=== PATIENT | male | born 1980 | race Caucasian/White ===

== ENCOUNTER 2018-05-14 14:51 | Outpatient (CLI) | payer OTHER ==
[2018-05-14 15:49] LABS: BASOPHILS # (AUTO) 0.1 X10'3 (0-0.2); EOSINOPHILS # (AUTO) 0.1 X10'3 (0-0.9); EOSINOPHILS % (AUTO) 1.3 % (0-6); HEMATOCRIT 46.5 % (42.0-52.0); HEMOGLOBIN 15.7 g/dl (14.0-17.9); LYMPHOCYTES % (AUTO) 25.7 % (21-51); MEAN CORPUSCULAR HEMOGLOBIN 27.8 PG (27.0-31.0); MEAN CORPUSCULAR HGB CONC 33.8 g/dL (33.0-36.5); MEAN CORPUSCULAR VOLUME 82.2 FL (78-98); MEAN PLATELET VOLUME 7.6 FL (7.4-10.4); MONOCYTES # (AUTO) 0.7 X10'3 (0-0.9); MONOCYTES % (AUTO) 8.9 % (2-12); NEUTROPHILS % (AUTO) 63.1 % (42-75); PLATELET COUNT 310 X10'3 (140-440); RED BLOOD COUNT 5.65 X10'6 (4.70-6.10); RED CELL DISTRIBUTION WIDTH 13.5 % (11.5-14.5); WHITE BLOOD COUNT 7.9 X10'3 (4.5-11.0)
[2018-05-14 16:03] LABS: ALANINE AMINOTRANSFERASE 45 U/L (12-78); ALBUMIN 4.1 G/DL (3.4-5.0); ALBUMIN/GLOBULIN RATIO 1.2 (1.1-1.5); ALKALINE PHOSPHATASE 77 IU/L (46-116); ANION GAP 11 (8-16); ASPARTATE AMINO TRANSFERASE 23 U/L (10-37); BILIRUBIN,DIRECT 0.1 MG/DL (0-0.3); BILIRUBIN,TOTAL 0.3 MG/DL (0.1-1.0); BLOOD UREA NITROGEN 19 MG/DL (7-18); BUN/CREATININE RATIO 20.4 (5.4-32.0); CALCIUM 9.2 MG/DL (8.5-10.1); CHLORIDE 103 MMOL/L (99-107); CREATININE 0.93 MG/DL (0.60-1.10); GLUCOSE 89 MG/DL (70-104); POTASSIUM 3.8 MMOL/L (3.5-5.1); SODIUM 139 MMOL/L (135-145); TOTAL PROTEIN 7.6 G/DL (6.4-8.2); eGFR > 90 ML/MIN
== END 2018-05-14 23:59 | disposition home or self-care (01) ==
LOC: LAB 14:51
PROVIDERS: ATTEND Family Medicine
DX: R76.11 Nonspecific reaction to tuberculin skin test without active tuberculosis (principal)
CPT/HCPCS: 36415; 80053; 82248; 85025

== ENCOUNTER 2019-12-06 15:47 | Emergency (ER) | payer BC, OTHER ==
[~2019-12-06] VITALS: Ht 195.6 cm; Wt 136.4 kg
[2019-12-06 15:58] VITALS: BP 142/89
== END 2019-12-06 18:02 | disposition home or self-care (01) ==
LOC: ER 15:48
DX: M54.2 Cervicalgia (principal); Z79.899 Other long term (current) drug therapy
CPT/HCPCS: 70490; 99284

== ENCOUNTER 2021-01-20 03:37 | Emergency (ER) | payer BC ==
[~2021-01-20] VITALS: Ht 195.6 cm; Wt 136.4 kg
[2021-01-20 04:15] LABS: BASOPHILS # (AUTO) 0.1 X10'3 (0-0.2); BASOPHILS % (AUTO) 0.9 % (0-1); EOSINOPHILS # (AUTO) 0.1 X10'3 (0-0.9); EOSINOPHILS % (AUTO) 0.9 % (0-6); HEMATOCRIT 47.7 % (42.0-52.0); HEMOGLOBIN 16.4 g/dl (14.0-17.9); LYMPHOCYTES # (AUTO) 2.7 X10'3 (1.1-4.8); LYMPHOCYTES % (AUTO) 26.6 % (21-51); MEAN CORPUSCULAR HEMOGLOBIN 28.1 PG (27.0-31.0); MEAN CORPUSCULAR HGB CONC 34.4 g/dL (33.0-36.5); MEAN CORPUSCULAR VOLUME 81.9 FL (78-98); MEAN PLATELET VOLUME 7.6 FL (7.4-10.4); MONOCYTES # (AUTO) 1.1 X10'3 (0-0.9); MONOCYTES % (AUTO) 11.3 % (2-12); NEUTROPHILS # (AUTO) 6.1 X10'3 (1.8-7.7); NEUTROPHILS % (AUTO) 60.3 % (42-75); PLATELET COUNT 367 X10'3 (140-440); RED BLOOD COUNT 5.83 X10'6 (4.70-6.10); RED CELL DISTRIBUTION WIDTH 13.8 % (11.5-14.5); WHITE BLOOD COUNT 10.1 X10'3 (4.5-11.0)
[2021-01-20 04:30] LABS: ALANINE AMINOTRANSFERASE 61 U/L (12-78); ALBUMIN 4.3 G/DL (3.4-5.0); ALKALINE PHOSPHATASE 87 IU/L (46-116); ANION GAP 12 (8-16); ASPARTATE AMINO TRANSFERASE 23 U/L (10-37); BILIRUBIN,TOTAL 0.5 MG/DL (0.1-1.0); BLOOD UREA NITROGEN 17 MG/DL (7-18); BUN/CREATININE RATIO 16.7 (5.4-32.0); CALCIUM 9.1 MG/DL (8.5-10.1); CHLORIDE 106 MMOL/L (99-107); CREATININE 1.02 MG/DL (0.60-1.10); GLUCOSE 95 MG/DL (70-104); POTASSIUM 3.7 MMOL/L (3.5-5.1); SODIUM 143 MMOL/L (135-145); TOTAL CARBON DIOXIDE 25.4 MMOL/L (24-32); TOTAL PROTEIN 8.4 G/DL (6.4-8.2); eGFR 81 ML/MIN
[2021-01-20] MEDS ORDERED: diltiazem 5mg/ml 5ml inj. IV ONE (04:45)
[2021-01-20 04:57] VITALS: BP 144/120
[2021-01-20] MEDS ORDERED: ASPI-1265 PO (06:17)
== END 2021-01-20 06:44 | disposition home or self-care (01) ==
LOC: ER 03:37
DX: I48.20 Chronic atrial fibrillation, unspecified (principal); Z79.82 Long term (current) use of aspirin; Z88.8 Allergy status to other drugs, medicaments and biological substances
CPT/HCPCS: 36415; 71045; 80053; 83880; 84484; 85025; 93005; 96374; 99285; J3490

== ENCOUNTER 2021-02-13 08:15 | Outpatient (CLI) | payer BC ==
[~2021-02-13 08:15] MED LIST: ASPI-1265 PO
== END 2021-02-13 23:59 | disposition home or self-care (01) ==
LOC: CARD DIAG 08:15
PROVIDERS: ATTEND Family Medicine
DX: I08.8 Other rheumatic multiple valve diseases (principal); I48.91 Unspecified atrial fibrillation
CPT/HCPCS: 93306

== ENCOUNTER → 2021-03-14 | Outpatient (CLI) | payer BC | END | disposition home or self-care (01) | LOC: RAD 09:12 | PROVIDERS: ATTEND Otolaryngology | DX: H90.0 Conductive hearing loss, bilateral (principal) | CPT/HCPCS: 70480 ==

== ENCOUNTER → 2021-03-14 | Outpatient (CLI) | payer BC | END | disposition home or self-care (01) | LOC: RAD 09:10 | PROVIDERS: ATTEND Family Medicine | DX: S83.001A Unspecified subluxation of right patella, initial encounter (principal); M25.761 Osteophyte, right knee; M25.762 Osteophyte, left knee; M25.461 Effusion, right knee; M94.261 Chondromalacia, right knee; M17.0 Bilateral primary osteoarthritis of knee; G44.229 Chronic tension-type headache, not intractable; X58.XXXA Exposure to other specified factors, initial encounter; Y93.89 Activity, other specified; Y92.89 Other specified places as the place of occurrence of the external cause; Y99.8 Other external cause status | CPT/HCPCS: 70551; 73565; 73721 ==

== ENCOUNTER 2021-05-17 08:39 | Emergency (ER) | payer BC ==
[~2021-05-17] VITALS: Ht 195.6 cm; Wt 136.4 kg
[2021-05-17 08:42] VITALS: BP 175/117
== END 2021-05-17 11:04 | disposition home or self-care (01) ==
LOC: ER 08:40 → EEVIPCON 08:40 → ER 11:04
DX: J02.9 Acute pharyngitis, unspecified (principal); R05.9 Cough, unspecified; I48.91 Unspecified atrial fibrillation; Z88.8 Allergy status to other drugs, medicaments and biological substances
CPT/HCPCS: 87077; 87081; 87880; 99283

== ENCOUNTER 2021-10-11 08:23 | Emergency (ER) | payer BC ==
[~2021-10-11] VITALS: Ht 195.6 cm; Wt 145.4 kg
[2021-10-11 09:00] VITALS: BP 144/107
== END 2021-10-11 11:15 | disposition left against medical advice (07) ==
LOC: ER 08:24
DX: M25.569 Pain in unspecified knee (principal); Z53.21 Procedure and treatment not carried out due to patient leaving prior to being seen by health care provider
CPT/HCPCS: 73564

== ENCOUNTER 2022-02-03 09:43 | Emergency (ER) | payer BC ==
[~2022-02-03] VITALS: Ht 195.6 cm; Wt 145.0 kg
[2022-02-03] MEDS ORDERED: ondansetron/PF 4mg/2ml inj IV ONE ×2 (10:05→12:05)
[2022-02-03] MEDS ORDERED: normal saline 1000ML IV soln IVB ONE (10:05)
[2022-02-03] MEDS ORDERED: diltiazem 5mg/ml 5ml inj. IV ONE (10:15)
[2022-02-03 10:22] LABS: BASOPHILS # (AUTO) 0.1 X10'3 (0-0.2); NEUTROPHILS # (AUTO) 8.5 X10'3 (1.8-7.7)
[2022-02-03 10:23] LABS: BASOPHILS % (AUTO) 0.7 % (0-1); EOSINOPHILS # (AUTO) 0.1 X10'3 (0-0.9); EOSINOPHILS % (AUTO) 0.6 % (0-6); HEMATOCRIT 48.8 % (42.0-52.0); HEMOGLOBIN 16.6 g/dl (14.0-17.9); LYMPHOCYTES # (AUTO) 2.8 X10'3 (1.1-4.8); LYMPHOCYTES % (AUTO) 21.9 % (21-51); MEAN CORPUSCULAR HEMOGLOBIN 27.7 PG (27.0-31.0); MEAN CORPUSCULAR VOLUME 81.6 FL (78-98); MEAN PLATELET VOLUME 7.6 FL (7.4-10.4); MONOCYTES # (AUTO) 1.2 X10'3 (0-0.9); MONOCYTES % (AUTO) 9.2 % (2-12); NEUTROPHILS % (AUTO) 67.6 % (42-75); PLATELET COUNT 383 X10'3 (140-440); RED BLOOD COUNT 5.99 X10'6 (4.70-6.10); RED CELL DISTRIBUTION WIDTH 13.6 % (11.5-14.5); WHITE BLOOD COUNT 12.6 X10'3 (4.5-11.0)
[2022-02-03 10:31] LABS: ALANINE AMINOTRANSFERASE 58 U/L (12-78); ALBUMIN 4.7 G/DL (3.4-5.0); ALBUMIN/GLOBULIN RATIO 1.1 (1.1-1.5); ALKALINE PHOSPHATASE 83 IU/L (46-116); ANION GAP 12 (8-16); ASPARTATE AMINO TRANSFERASE 31 U/L (10-37); BLOOD UREA NITROGEN 18 MG/DL (7-18); BUN/CREATININE RATIO 17.6 (5.4-32.0); CALCIUM 9.9 MG/DL (8.5-10.1); CHLORIDE 101 MMOL/L (99-107); CREATININE 1.02 MG/DL (0.60-1.10); GLUCOSE 108 MG/DL (70-104); POTASSIUM 3.3 MMOL/L (3.5-5.1); SODIUM 139 MMOL/L (135-145); TOTAL PROTEIN 8.8 G/DL (6.4-8.2); eGFR 81 ML/MIN
[2022-02-03] MEDS ORDERED: acetaminophen 325mg tablet PO ONE (10:55)
[2022-02-03] MEDS ORDERED: POTASSIUM BICARB 20meq eff tab 20 MEQ TABLET.EFF PO ONE (11:20)
[2022-02-03] MEDS ORDERED: LORazepam 1 MG tablet PO ONE (11:45)
[2022-02-03 12:09] VITALS: BP 131/83
== END 2022-02-03 12:17 | disposition home or self-care (01) ==
LOC: ER 09:44
DX: I49.9 Cardiac arrhythmia, unspecified (principal); E87.6 Hypokalemia; R11.2 Nausea with vomiting, unspecified; R53.83 Other fatigue; G47.01 Insomnia due to medical condition; R51.9 Headache, unspecified; I48.91 Unspecified atrial fibrillation; Z88.8 Allergy status to other drugs, medicaments and biological substances
CPT/HCPCS: 36415; 71045; 80053; 83880; 84484; 85025; 93005; 96361; 96374; 96375; 96376; 99285; J2405; J3490; J7030

== ENCOUNTER 2022-05-11 17:58 | Emergency (ER) | payer BC ==
[~2022-05-11] VITALS: Ht 195.6 cm; Wt 136.0 kg
[2022-05-11 18:11] VITALS: BP 140/102
[2022-05-11] MEDS ORDERED: cephalexin 500mg capsule PO ONE (18:40)
[2022-05-11] MEDS ORDERED: CEPH500C2 PO (18:52)
== END 2022-05-11 19:07 | disposition home or self-care (01) ==
LOC: ER 17:59
DX: L03.031 Cellulitis of right toe (principal); Z88.8 Allergy status to other drugs, medicaments and biological substances; I51.9 Heart disease, unspecified
CPT/HCPCS: 99283